=== PATIENT | female | born 1960 | race Caucasian/White ===

== ENCOUNTER 2017-06-13 14:30 | Outpatient (CLI) | payer OTHER | END 2017-06-13 14:31 | disposition home or self-care (01) | LOC: BICMAMMO 14:30 | PROVIDERS: ATTEND Internal Medicine | DX: Z12.31 Encounter for screening mammogram for malignant neoplasm of breast (principal); Z85.850 Personal history of malignant neoplasm of thyroid; Z78.0 Asymptomatic menopausal state; Z85.820 Personal history of malignant melanoma of skin | CPT/HCPCS: 77063; 77067; 77080 ==